=== PATIENT | male | born 2000 | race Caucasian/White ===

== ENCOUNTER 2022-09-14 09:22 | Emergency (ER) | payer BC ==
[2022-09-14 09:39] VITALS: RESP 18
[2022-09-14] MEDS ORDERED: AZITHROMYCIN 250 MG TAB PO STA (09:48)
--- NOTE | 2022-09-14 09:54 | ED ---
Male Urogenital HPI - General Chief complaint: Urogenital Stated complaint: STD/STI test Time Seen by Provider: 09/14/22 09:42 Source: patient Mode of arrival: ambulatory Limitations: no limitations - History of Present Illness Initial comments: Patient presents to the emergency room for treatment after exposure to chlamydia. Patient states sexually active with this partner 2 weeks ago. Partner tested positive and he was notified 2 days ago. Patient denies any symptoms. Severity scale (1-10): 0 - Related Data Allergies Allergy/AdvReac Type Severity Reaction Status Date / Time No Known Allergies Allergy Verified 09/14/22 09:39 Review of Systems ROS Statement: Those systems with pertinent positive or pertinent negative responses have been documented in the HPI. ROS Other: All systems not noted in ROS Statement are negative. Past Medical History Past Medical History: No Reported History History of Any Multi-Drug Resistant Organisms: None Reported Additional Past Surgical History / Comment(s): eye surgery as baby. Past Psychological History: No Psychological Hx Reported Smoking Status: Never smoker Past Alcohol Use History: None Reported Past Drug Use History: None Reported General Exam Limitations: no limitations General appearance: alert, in no apparent distress Head exam: Present: atraumatic Eye exam: Present: normal appearance. Absent: scleral icterus, conjunctival injection, periorbital swelling, periorbital tenderness Respiratory exam: Absent: respiratory distress, accessory muscle use Cardiovascular Exam: Present: regular rate GI/Abdominal exam: Present: soft Neurological exam: Present: alert, oriented X3 Psychiatric exam: Present: normal affect, normal mood Skin exam: Present: warm, dry, normal color. Absent: cyanosis, diaphoretic Course Vital Signs 09/14/22 09/14/22 09:37 10:37 Temperature 98 F 98.0 F Pulse Rate 86 79 Respiratory 18 18 Rate Blood Pressure 113/68 108/68 O2 Sat by Pulse 100 98 Oximetry Medical Decision Making - Medical Decision Making Patient treated prophylactically after notifed partner tested positive for chlamydia. He was offered treatment for other STI's and declined stating only wants treatment for chlamydia. Urine cultures were sent. Case discussed with Dr. Connelly Was pt. sent in by a medical professional or institution? @ -No Did you speak to anyone other than the patient for history? @ -No Did you review nursing and triage notes? @ -Yesterday agree Were old charts reviewed? @ -No Differential Diagnosis? @ -STI exposure What testing was considered but not performed? (CT, X-rays, U/S, labs)? Why? @ None What meds were considered but not given? Why? @ Treatment for other STDs considered, patient declined Did you discuss the management of the patient with other professionals? @ -No Did you reconcile home meds? @ -None Was smoking cessation discussed for >3mins.? @ -No Was critical care preformed (if so, how long)? @ -None Were there social determinants of health that impacted care today? How? (Homelessness, low income, unemployed, alcoholism, drug addiction, transportation, low edu. Level, literacy, decrease access to med. care, prison, rehab)? @ -None Was there de-escalation of care discussed even if they declined? (Discuss DNR or withdrawal of care, Hospice)? @ -No What co-morbidities impacted this encounter? (DM, HTN, Smoking, COPD, CAD, Cancer, CVA, Hep., AIDS, mental health diagnosis, sleep apnea, morbid obesity)? @ -None Was patient admitted / discharged? @ -Discharged Undiagnosed new problem with uncertain prognosis? @ -[none] Drug Therapy requiring intensive monitoring for toxicity (Heparin, Nitro, Insulin, Cardizem)? @ -[none] Were any procedures done? @ -[none] Diagnosis/symptom? @ -STI exposure Acute, or Chronic, or Acute on Chronic? @ -Acute Uncomplicated (without systemic symptoms) or Complicated (systemic symptoms)? @ -Uncomplicated Side effects of treatment? @ -[none] Exacerbation, Progression, or Severe Exacerbation] @ -[no] Poses a threat to life or bodily function? @ -[no] - Lab Data Lab Results 09/14/22 Range/Units 10:29 Urine Color Yellow Urine Appearance Clear (Clear) Urine pH 5.5 (5.0-8.0) Ur Specific [place] 1.029 (1.001-1.035) Urine Protein Trace H (Negative) Urine Glucose (UA) Negative (Negative) Urine Ketones Negative (Negative) Urine Blood Negative (Negative) Urine Nitrite Negative (Negative) Urine Bilirubin Negative (Negative) Urine Urobilinogen <2.0 (<2.0) mg/dL Ur Leukocyte Esterase Trace H (Negative) Urine RBC 1 (0-5) /hpf Urine WBC 6 H (0-5) /hpf Urine Mucus Many H (None) /hpf Disposition Clinical Impression: Exposure to chlamydia Disposition: HOME SELF-CARE Condition: Good Instructions (If sedation given, give patient instructions): Chlamydia (ED), Sexually Transmitted Diseases (ED), Male Condom Use (ED) Additional Instructions: Avoid sex for 7 days to prevent transmission. All partners should be treated. Return to the emergency room with any new or concerning symptoms. Is patient prescribed a controlled substance at d/c from ED?: No Referrals: Ronen Christian MD [Primary Care Provider] - 1-2 days Time of Disposition: 09:54
[2022-09-14 10:40] VITALS: BP 108/68; PULSE 79; TEMP 98
[2022-09-14 11:10] LABS: Appearance,Urine Clear (Clear); Bilirubin,Urine Negative (Negative); Blood,Urine Negative (Negative); Color,Urine Yellow; Glucose,Urine (UA) Negative (Negative); Ketones,Urine Negative (Negative); Leukocyte Esterase,Urine Trace (Negative); Mucus,Urine Many /hpf; Nitrite,Urine Negative (Negative); PH, Urine 5.5 (5.0-8.0); Protein,Urine Trace (Negative); RBC,Urine 1 /hpf (0-5); Specific Gravity,Urine 1.029 (1.001-1.035); Urobilinogen,Urine <2.0 mg/dL (<2.0); WBC,Urine 6 /hpf (0-5)
[2022-09-15 16:50] LABS: Chlamydia trachomatis rRNA DETECTED (Not detected); Neisseria gonorrhoeae rRNA Not detected (Not detected)
== END 2022-09-14 10:44 | disposition home or self-care (01) ==
LOC: EC 09:22
DX: Z20.2 Contact with and (suspected) exposure to infections with a predominantly sexual mode of transmission (principal)
CPT/HCPCS: 81001; 87491; 99283